=== PATIENT | male | born 1970 | race African-American/Black ===

== ENCOUNTER 2024-07-17 15:34 | Emergency (ER) | payer MEDICAID ==
[~2024-07-17] VITALS: Ht 170.2 cm; Wt 90.0 kg
[~2024-07-17 15:34] MED LIST: ALBU2.5V13 IH
[2024-07-17 15:35] VITALS: BP 117/93; PULSE 140; RESP 24; TEMP 36.9; O2SAT 100
== END 2024-07-17 17:42 | disposition left against medical advice (07) ==
LOC: ER 15:34
DX: R00.0 Tachycardia, unspecified (principal); Z53.21 Procedure and treatment not carried out due to patient leaving prior to being seen by health care provider
CPT/HCPCS: 93005; 99283